=== PATIENT | male | born 1960 | race Caucasian/White ===

== ENCOUNTER 2017-02-01 18:08 | Emergency (ER) ==
[2017-02-01 18:42] LABS: URINE CULTURE NEEDED? NO; URINE MICRO REVIEW NEEDED? NO; URINE SOURCE CLEAN CATCH
[2017-02-01] MEDS ORDERED: ATIVAN PO ONE (18:48)
[2017-02-01] MEDS ORDERED: TYLENOL PO ONE (18:48)
--- NOTE | 2017-02-01 18:53 | PROVIDER DOCUMENTATION ---
HPI-Psychological Disorder - General Source: patient - History of Present Illness-Psych Onset/Duration: reports: unsure Timing: reports: still present Severity: reports: mild Situational problems related to:: reports: spouse (), daughter Psychiatric Complaints: reports: denies symptoms Previous psych related hospitalizations?: Yes Patient arrived by:: private car Similar Symptoms Previously?: Yes <Reece Callejas - Last Filed: 02/01/17 18:49> <Viraj Drake - Last Filed: 02/02/17 04:40> - General Chief Complaint: Psych Stated Complaint: PSYCH Time Seen by Provider: 02/01/17 18:18 Allergies/Adverse Reactions: Patient Allergies Allergy/AdvReac Type Severity Reaction Status Date / Time pseudoephedrine HCl * Allergy Mild HIVES Verified 02/01/17 18:31 [From [facility]] Home Medications: Home Medication List Medication Instructions Recorded Confirmed Last Taken Type Risperidone [Risperdal Consta] 25 mg IM Q14D #0 syringe 10/20/12 02/01/17 23:00 Rx Amoxicillin 500 mg PO TID 02/25/14 02/01/17 02/25/14 08:00 History Benzonatate 100 mg PO TID 02/25/14 02/01/17 02/24/14 23:00 History Citalopram Hydrobromide 10 mg PO DAILY 02/25/14 02/01/17 02/24/14 23:00 History [Citalopram HBr] Divalproex E.r. [Depakote ER] 250 mg PO QHS 02/25/14 02/01/17 02/24/14 23:00 History Divalproex Sodium 500 mg PO QHS 02/25/14 02/01/17 02/24/14 23:00 History Furosemide [Lasix] 40 mg PO DAILY #30 tablet 02/02/17 Unknown Rx Potassium Chloride [Klor-Con M20] 20 meq PO BID #14 tab.er.prt 02/02/17 Unknown Rx Sulfamethoxazole/Trimethoprim 1 each PO BID #14 tablet 02/02/17 Unknown Rx [Bactrim Ds Tablet] - History of Present Illness-Psych Nature of Presenting Problem: Pt is a 56 yom who presents to ER via EMS with CC of "I don't know." Pt denies any illness, but does report that he recently been having problems with his and daughter not ever believing him and never taking his side of things. On exam, pt is compliant and in no apparent distress. Pt was discharged several days ago from hospital after brought him and reported that pt is becoming "altered and difficult." Pt does have hx of bipolar disorder. (Reece Callejas) Review of Systems - Adult - REVIEW OF SYSTEMS - ADULT Constitutional: denies: chills, fever, fatique, night sweats, weight gain, weight loss Eyes: reports: no symptoms reported Ears, Nose, Mouth & Throat: reports: no symptoms reported Cardiovascular: denies: chest pain, heart murmur, irregular heart rate, palpitations, poor circulation, syncope Respiratory: denies: chronic cough, cough, dyspnea on exertion, excessive sputum production, hemoptysis, pleurisy, shortness of breath, wheezing Gastrointestinal: reports: no symptoms reported Genitourinary: reports: no symptoms reported Musculoskeletal: reports: no symptoms reported Integumentary: reports: no symptoms reported Neurological: reports: no symptoms reported Psychiatric: reports: emotional problems. denies: anxiety, anti-depressant use , alcohol/drug dependence, depression, insomnia, panic attacks, suicidal thoughts Endocrine: reports: no symptoms reported Hematologic/Lymphatic: reports: no symptoms reported Allergic/Immunologic: reports: no symptoms reported All Other Systems: Reviewed and Negative <Reece Callejas - Last Filed: 02/01/17 18:49> Past History - Adult - PAST MEDICAL HISTORY-ADULT Review of Records: reports: Nursing Assessment Review, Medications Reviewed - IMMUNIZATION STATUS Childhood Immunizations: See Nurse Assessment Flu Vaccine: See Nurse Assessment <Reece Callejas - Last Filed: 02/01/17 18:49> Physical Exam-Psych Focus - Physical Exam-Psych Initial Vital Signs Reviewed: Yes Appearance: appropriate appearance, appropriate insight, neat, no apparent distress, no memory impairment, denies illness, alert. 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 negative: agitated, anxious, depressed affect, disoriented x 3, flat, no response to pain, withdraws to pain Behavior/Eye Contact/Speech: cooperative, good eye contact, normal speech. negative: avoids eye contact, refused to answer, threatening eye contact Thoughts/Hallucinations: normal thought pattern, no apparent hallucination. negative: auditory hallucinations, flight of ideas, phobic, tactile hallucinations, visual hallucinations Respiratory: chest non-tender, lungs clear, normal breath sounds. negative: respiratory distress, decreased breath sounds, accessory muscle use, wheezing Cardiovascular: normal peripheral pulses, regular rate, rhythm. negative: bradycardia, tachycardia, irregularly irregular Integumentary: normal color, normal turgor, warm/dry. negative: abrasion(s), diaphoresis, erythema, laceration(s), swelling, tenderness, warm <Reece Callejas - Last Filed: 02/01/17 18:49> Progress - REASSESSMENT Reassessment #1 Time Reassessed: 04:38 (well behavior and no acute hallucination/no delusional at present ) Status: improving <Viraj Drake - Last Filed: 02/02/17 04:40> Departure <Reece Callejas - Last Filed: 02/01/17 18:49> - Departure Time of Disposition Order: 04:39 Certified Medical Emergency: Emergent <Viraj Drake - Last Filed: 02/02/17 04:40> - Departure DIAGNOSIS: Edema of both legs, Bipolar 1 disorder, manic, mild Disposition: HOME 01 Condition: Stable Additional Instructions: ED Follow Up Instructions: You have been treated by a care provider in the Emergency Department. These instructions are being provided to you so you can have an understanding of how to care for yourself upon discharge. Upon discharge from the Emergency Department, you are responsible for making arrangements for follow-up care by a physician of your choice. Take all prescribed medications as directed. Return to the Emergency Department immediately for any new or worsening symptoms. You may call the Physician Referral phone number at [phone] to obtain a list of Physicians who are taking new patients. Prescriptions: Sulfamethoxazole/Trimethoprim [Bactrim Ds Tablet] 1 each PO BID #14 tablet Potassium Chloride [Klor-Con M20] 20 meq PO BID #14 tab.er.prt Furosemide [Lasix] 40 mg PO DAILY #30 tablet Referrals: Rose Wu MD [Primary Care Provider] - Attestation - Scribe Verification/Attestation Scribe:: Reece Callejas Acting as Scribe for:: Viraj Drake Scribe documention review:: This chart was documented by a scribe and accurately reflects the service the provider performed and the decisions made by the provider. <Reece Callejas - Last Filed: 02/01/17 18:49> Physician Attestation
[2017-02-01 18:54] LABS: BILIRUBIN URINE NEGATIVE (NEGATIVE); BLOOD URINE NEGATIVE (NEGATIVE); COLOR STRAW; GLUCOSE URINE TRACE mg/dL (NEGATIVE); LEUKOCYTES URINE NEGATIVE (NEGATIVE); NITRITE URINE NEGATIVE (NEGATIVE); PROTEIN URINE NEGATIVE (NEGATIVE); SP GRAVITY URINE 1.004; TURBIDITY URINE CLEAR (CLEAR); UR EPITHELIAL CELLS <10 /HPF (<10); URINE BACTERIA NEGATIVE /HPF; URINE RBC <10 /HPF (<10); URINE WBC <10 /HPF (<10); UROBILINOGEN URINE NORMAL (NORMAL)
[2017-02-01 18:55] LABS: UR AMPHETAMINES QUAL NONE DETECTED (NONE DETECT); UR BARBITUATES QUAL NONE DETECTED (NONE DETECT); UR BENZODIAZEPIN QUAL NONE DETECTED (NONE DETECT); UR CANNABINOIDS QUAL NONE DETECTED (NONE DETECT); UR COCAINE QUAL NONE DETECTED (NONE DETECT); UR METHADONE QUAL NONE DETECTED (NONE DETECT); UR OPIATES QUAL NONE DETECTED (NONE DETECT); UR OXYCODONE QUAL NONE DETECTED (NONE DETECT); UR PCP QUAL NONE DETECTED (NONE DETECT)
[2017-02-01 19:07] LABS: MANUAL DIFF NEEDED? NO
[2017-02-01 19:14] LABS: BASO% 0.4 % (0.0-0.8); EOS# 0.16 X1000 (0.0-0.7); EOS% 1.4 % (0.0-10.0); HEMATOCRIT 39.8 % (42.0-52.0); HEMOGLOBIN 14.5 g/dL (14.0-18.0); IMM GRAN# 0.09 X1000 (0.0-0.04); IMM GRAN% 0.8 % (0.0-0.5); LYMPH# 1.85 X1000 (1.2-3.4); LYMPH% 16.7 % (20.5-51.1); MCH 31.7 PG (27-31); MCHC 36.4 g/dL (33-37); MCV 86.9 FL (81-99); MONO# 1.28 X1000 (0.11-0.59); MONO% 11.5 % (1.7-9.3); NEUT% 69.2 % (42.2-75.2); PLT 347 X1000 (130-400); RBC 4.58 XMIL (4.7-6.1)
[2017-02-01 19:29] LABS: AGAP 16; ALBUMIN 4.2 g/dL (3.5-5.0); ALKALINE PHOSPHATASE 72 U/L (32-122); BUN 7 mg/dL (8-22); CALCIUM 10.1 mg/dL (8.8-10.2); CHLORIDE 94 mmol/L (98-107); COSMO 270; GOT 26 U/L (10-34); GPT 29 U/L (10-44); POTASSIUM 4.2 mmol/L (3.5-5.1); SODIUM 134 mmol/L (136-145); TCO2 24 mmol/L (25-35); TOTAL BILIRUBIN 0.42 mg/dL (0.20-1.00); TOTAL PROTEIN 7.2 g/dL (6.3-8.3)
[2017-02-01 19:48] LABS: FREE T4 1.17 ng/dL (0.93-1.70)
[2017-02-02] MEDS ORDERED: LASIX PO ONE (04:36)
[2017-02-02] MEDS ORDERED: SEPTRA DS PO ONE (04:36)
[2017-02-02 12:30] VITALS: BP 122/85
== END 2017-02-02 12:29 | disposition home or self-care (01) ==
LOC: EDBD → ED 18:08
DX: R60.0 Localized edema (principal); F31.9 Bipolar disorder, unspecified; Z79.899 Other long term (current) drug therapy
CPT/HCPCS: 80053; 81001; 82607; 82948; 84439; 84443; 85025; 99283; G0480; 80320; 80324; 80345; 80346; 80349; 80353; 80358; 80361; 80365; 83992

== ENCOUNTER 2017-02-04 16:43 | Emergency (ER) ==
--- NOTE | 2017-02-04 17:37 | PROVIDER DOCUMENTATION ---
HPI-Psychological Disorder <CarlosNanci miller - Last Filed: 02/04/17 19:57> <Mukesh Silver - Last Filed: 02/04/17 20:46> - General Chief Complaint: Psych Stated Complaint: COURT HOLD, PSYCH Time Seen by Provider: 02/04/17 17:23 Allergies/Adverse Reactions: Patient Allergies Allergy/AdvReac Type Severity Reaction Status Date / Time pseudoephedrine HCl * Allergy Mild HIVES Verified 02/04/17 17:35 [From [facility]] Home Medications: Home Medication List Medication Instructions Recorded Confirmed Last Taken Type LISINOpril [Prinivil] 20 mg PO DAILY 02/04/17 02/04/17 02/04/17 History LOVAstatin [Mevacor] 20 mg PO WSUPPER 02/04/17 02/04/17 02/04/17 History Metformin [Glucophage] 500 mg PO BID CC 02/04/17 02/04/17 02/04/17 History - History of Present Illness-Psych Nature of Presenting Problem: Pt was recently admitted to inpatient psych but was sent over from dr chloe leigh office as a psych hold apparently. He was unable to tell me any complaints other than he "has sugar DM in his legs" and that he hasn't had his medications and that his doesn't know what to feed him. He also states that BRITTNEY is the problem not him he is a nice qamar. He denies SI or any complaint at this time. (Mukesh Silver) Review of Systems - Adult - REVIEW OF SYSTEMS - ADULT ROS:: limited per condition Constitutional: reports: no symptoms reported. denies: chills, fever, fatique, night sweats, weight gain, weight loss Eyes: reports: no symptoms reported. denies: discharge, dry eyes, decreased vision, blurred vision, eye pain, redness Ears, Nose, Mouth & Throat: reports: no symptoms reported. denies: ear discharge, hearing loss, tinnitus, epistaxis, nose pain, loose teeth, mouth swelling, hoarseness, throat swelling Cardiovascular: reports: no symptoms reported. denies: chest pain, edema, heart murmur, orthopnea, palpitations, poor circulation, syncope Respiratory: reports: no symptoms reported. denies: chronic cough, cough, dyspnea on exertion, excessive sputum production, pleurisy, shortness of breath , wheezing Gastrointestinal: reports: no symptoms reported. denies: abdominal pain, hematemesis, diarrhea, difficulty swallowing, nausea, poor appetite, rectal bleeding, vomiting Genitourinary: reports: no symptoms reported. denies: dysuria, discharge, frequency, frequent UTI's, hematuria, hesitency, urinary retention, urgency Musculoskeletal: reports: no symptoms reported. denies: bone pain, back pain, frequent leg cramps, joint pain, muscle aches, muscle weakness, neck pain Integumentary: reports: no symptoms reported. denies: hives, hair loss, itching , mole changes, rash, skin sores/ulcer, skin thickening Neurological: reports: no symptoms reported. denies: ataxia, headache/migraines , loss of balance, paresthesia, slurred speech, syncope, tremors Psychiatric: reports: see HPI, depression, other (schizo). denies: insomnia, suicidal thoughts Endocrine: reports: no symptoms reported. denies: change in skin pigment, excessive sweating, goiter, cold intolerance, heat intolerance, increased hunger , increased thirst, polyuria Hematologic/Lymphatic: reports: no symptoms reported. denies: blood clots, easy bruising, lymphedema, prolonged bleeding, swollen lymph nodes, transfusions Allergic/Immunologic: reports: no symptoms reported. denies: allergic reactions , allergic rhinitis, asthma, food allergy, frequent infections, hay fever, hives , positive PPD All Other Systems: Reviewed and Negative <Mukesh Silver - Last Filed: 02/04/17 20:46> Past History - Adult - PAST MEDICAL HISTORY-ADULT Review of Records: reports: Old Records Reviewed, Nursing Assessment Review, Medications Reviewed, Social history reviewed & non-contributory. Major Childhood Illnesses: reports: denies history Cardiovascular: reports: HTN, hyperlipidemia Respiratory: reports: denies history Gastrointestinal: reports: denies history Obstetrical/Gynecological: reports: denies history Genitourinary: reports: denies history Musculoskeletal: reports: denies history Neurological: reports: denies history Endocrine/Immune: reports: Diabetes Diabetes Type: Type 2 Other Conditions: reports: denies history - PRIOR SURGERIES/PROCEDURES Surgical/Procedure History: reports: reviewed, not pertinent - PRIOR HOSPITALIZATIONS Prior Hospitalizations: reports: psychiatric or rehab - IMMUNIZATION STATUS Childhood Immunizations: See Nurse Assessment Flu Vaccine: See Nurse Assessment - FAMILY HISTORY Family History: reviewed, not pertinent - SOCIAL HISTORY Smoking: denies Substance Use: none/never Alcohol Use Frequency: never Living Situation: family <Mukesh Silver - Last Filed: 02/04/17 20:46> Physical Exam-Psych Focus - Physical Exam-Psych Initial Vital Signs Reviewed: Yes Appearance: denies illness, alert, disheveled, impaired insight Neurological: alert, normal mood/affect, calm, 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, other ( questionable orientation) Behavior/Eye Contact/Speech: cooperative, good eye contact, increased rate of speech Thoughts/Hallucinations: no apparent hallucination, flight of ideas HENMT: normocephalic/atraumatic, moist mucous membranes, normal ENT inspection Neck: non-tender, full range of motion Respiratory: chest non-tender, lungs clear, normal breath sounds Cardiovascular: normal peripheral pulses, regular rate, rhythm Abdominal Exam: normal bowel sounds, non tender, soft Back Exam: normal inspection, no CVA tenderness Extremity: normal range of motion, non-tender, normal gait, no calf tenderness, pedal edema, swelling Integumentary: normal turgor, warm/dry (chronic discoloration from venous stasis ), other <Mukesh Silver - Last Filed: 02/04/17 20:46> Progress - EKG 1 Time of EKG reading by physician:: 17:54 EKG Read and Signed by:: Viraj Drake EKG Interpretation (*Must complete 3 of following elements*): Abnormal Rate: 102 Rhythm: sinus tachycardia Huson: normal Comments: inferior infarct, age undetermined <Nanci Gonzalez - Last Filed: 02/04/17 19:57> - XRAY 1 XRAY Study: Chest XRAY Interpretation: mildly increased pulm vasc markings (hcb) <Mukesh Silver - Last Filed: 02/04/17 20:46> - PLAN OF CARE/RESULTS Progress/Plan/Lab Results: Laboratory Tests 02/04/17 02/04/17 02/04/17 17:14 17:14 17:30 WBC RBC Hgb Hct MCV MCH MCHC RDW Std Deviation Plt Count MPV Immature Gran % (Auto) Neut % (Auto) Lymph % (Auto) Andrews % (Auto) Eos % (Auto) Baso % (Auto) Immature Gran # (Auto) Neut # (Auto) Lymph # (Auto) Andrews # (Auto) Eos # (Auto) Baso # (Auto) Sodium Potassium Chloride Carbon Dioxide Anion Gap BUN Creatinine Estimated GFR/1.73 m2 BUN/Creatinine Ratio Glucose Calculated Osmolality Calcium Total Bilirubin AST ALT Alkaline Phosphatase Total Protein Albumin Globulin Albumin/Globulin Ratio Vitamin B12 TSH Free T4 Urine Source CLEAN CATCH Urine Color STRAW Urine Turbidity CLEAR Urine pH 7.0 Ur Specific [place] 1.003 Urine Protein NEGATIVE Ur Glucose (Stick) NEGATIVE Ur Ketones (Stick) NEGATIVE Urine Blood NEGATIVE Urine Nitrite NEGATIVE Urine Bilirubin NEGATIVE Urobilinogen Dipstick NORMAL Urine Leukocytes NEGATIVE Urine WBC (Auto) <10 Urine RBC (Auto) <10 U Epithel Cells (Auto) <10 Urine Bacteria (Auto) NEGATIVE Salicylates Urine Opiates Screen NONE DETECTED Ur Oxycodone Screen NONE DETECTED Ur Methadone, Qual NONE DETECTED Acetaminophen Ur Barbiturates Screen NONE DETECTED Ur Phencyclidine Scrn NONE DETECTED Ur Amphetamines Screen NONE DETECTED U Benzodiazepines Scrn NONE DETECTED Urine Cocaine Screen NONE DETECTED U Cannabinoids Screen NONE DETECTED Plasma/Serum Ethyl Alc 17 H 02/04/17 02/04/17 02/04/17 17:30 17:30 17:30 WBC 8.68 RBC 4.50 L Hgb 14.2 Hct 38.8 L MCV 86.2 MCH 31.6 H MCHC 36.6 RDW Std Deviation 12.2 Plt Count 369 MPV 9.7 Immature Gran % (Auto) 0.7 H Neut % (Auto) 63.6 Lymph % (Auto) 20.7 Andrews % (Auto) 13.1 H Eos % (Auto) 1.6 Baso % (Auto) 0.3 Immature Gran # (Auto) 0.06 H Neut # (Auto) 5.51 Lymph # (Auto) 1.80 Andrews # (Auto) 1.14 H Eos # (Auto) 0.14 Baso # (Auto) 0.03 Sodium 130 L Potassium 4.1 Chloride 92 L Carbon Dioxide 21 L Anion Gap 17 BUN 5 L Creatinine 0.8 Estimated GFR/1.73 m2 > 60 BUN/Creatinine Ratio 6 Glucose 167 H Calculated Osmolality 262 Calcium 9.1 Total Bilirubin 0.48 AST 28 ALT 27 Alkaline Phosphatase 67 Total Protein 6.9 Albumin 4.2 Globulin 2.7 Albumin/Globulin Ratio 1.6 Vitamin B12 630 TSH 0.82 Free T4 1.21 Urine Source Urine Color Urine Turbidity Urine pH Ur Specific [place] Urine Protein Ur Glucose (Stick) Ur Ketones (Stick) Urine Blood Urine Nitrite Urine Bilirubin Urobilinogen Dipstick Urine Leukocytes Urine WBC (Auto) Urine RBC (Auto) U Epithel Cells (Auto) Urine Bacteria (Auto) Salicylates < 3.00 L Urine Opiates Screen Ur Oxycodone Screen Ur Methadone, Qual Acetaminophen < 1.2 L Ur Barbiturates Screen Ur Phencyclidine Scrn Ur Amphetamines Screen U Benzodiazepines Scrn Urine Cocaine Screen U Cannabinoids Screen Plasma/Serum Ethyl Alc Orders Category Date Time Status Diabetic Diet Diet 02/04/17 18:02 Active cxr [CHEST-1 VIEW] [RAD] Stat Exams 02/04/17 17:43 Taken ACETAMINOPHEN [TDM] Stat Lab 02/04/17 17:30 Completed ALCOHOL BLOOD Stat Lab 02/04/17 17:30 Completed CBC WITH ELECTRONIC DIFF [HEME] Stat Lab 02/04/17 17:30 Completed COMPREHENSIVE METABOLIC PANEL [CHEM] Stat Lab 02/04/17 17:30 Completed FREE T4 Stat Lab 02/04/17 17:30 Completed SALICYLATES [TDM] Stat Lab 02/04/17 17:30 Completed TSH Stat Lab 02/04/17 17:30 Completed URINALYSIS W/POSS RFLX CULT [URINALYSIS] Stat Lab 02/04/17 17:14 Completed URINE DRUG SCREEN Stat Lab 02/04/17 17:14 Completed VITAMIN B12 Stat Lab 02/04/17 17:30 Completed Furosemide [Lasix] Med 02/04/17 18:33 Discontinued 40 mg IV NOW ONE Insulin Human Regular [Humulin R] Med 02/04/17 18:34 Discontinued 2 unit IV NOW ONE EKG [EKG] Stat Ther 02/04/17 17:25 Ordered Vital Signs - 24 hr 02/04/17 17:00 Temperature 98.3 F Pulse Rate 95 H Respiratory 20 Rate Blood Pressure 123/75 O2 Sat by Pulse 100 Oximetry Laboratory Tests 02/04/17 02/04/17 02/04/17 17:14 17:14 17:30 WBC RBC Hgb Hct MCV MCH MCHC RDW Std Deviation Plt Count MPV Immature Gran % (Auto) Neut % (Auto) Lymph % (Auto) Andrews % (Auto) Eos % (Auto) Baso % (Auto) Immature Gran # (Auto) Neut # (Auto) Lymph # (Auto) Andrews # (Auto) Eos # (Auto) Baso # (Auto) Sodium Potassium Chloride Carbon Dioxide Anion Gap BUN Creatinine Estimated GFR/1.73 m2 BUN/Creatinine Ratio Glucose Calculated Osmolality Calcium Total Bilirubin AST ALT Alkaline Phosphatase Total Protein Albumin Globulin Albumin/Globulin Ratio Vitamin B12 TSH Free T4 Urine Source CLEAN CATCH Urine Color STRAW Urine Turbidity CLEAR Urine pH 7.0 Ur Specific [place] 1.003 Urine Protein NEGATIVE Ur Glucose (Stick) NEGATIVE Ur Ketones (Stick) NEGATIVE Urine Blood NEGATIVE Urine Nitrite NEGATIVE Urine Bilirubin NEGATIVE Urobilinogen Dipstick NORMAL Urine Leukocytes NEGATIVE Urine WBC (Auto) <10 Urine RBC (Auto) <10 U Epithel Cells (Auto) <10 Urine Bacteria (Auto) NEGATIVE Salicylates Urine Opiates Screen NONE DETECTED Ur Oxycodone Screen NONE DETECTED Ur Methadone, Qual NONE DETECTED Acetaminophen Ur Barbiturates Screen NONE DETECTED Ur Phencyclidine Scrn NONE DETECTED Ur Amphetamines Screen NONE DETECTED U Benzodiazepines Scrn NONE DETECTED Urine Cocaine Screen NONE DETECTED U Cannabinoids Screen NONE DETECTED Plasma/Serum Ethyl Alc 17 H 02/04/17 02/04/17 02/04/17 17:30 17:30 17:30 WBC 8.68 RBC 4.50 L Hgb 14.2 Hct 38.8 L MCV 86.2 MCH 31.6 H MCHC 36.6 RDW Std Deviation 12.2 Plt Count 369 MPV 9.7 Immature Gran % (Auto) 0.7 H Neut % (Auto) 63.6 Lymph % (Auto) 20.7 Andrews % (Auto) 13.1 H Eos % (Auto) 1.6 Baso % (Auto) 0.3 Immature Gran # (Auto) 0.06 H Neut # (Auto) 5.51 Lymph # (Auto) 1.80 Andrews # (Auto) 1.14 H Eos # (Auto) 0.14 Baso # (Auto) 0.03 Sodium 130 L Potassium 4.1 Chloride 92 L Carbon Dioxide 21 L Anion Gap 17 BUN 5 L Creatinine 0.8 Estimated GFR/1.73 m2 > 60 BUN/Creatinine Ratio 6 Glucose 167 H Calculated Osmolality 262 Calcium 9.1 Total Bilirubin 0.48 AST 28 ALT 27 Alkaline Phosphatase 67 Total Protein 6.9 Albumin 4.2 Globulin 2.7 Albumin/Globulin Ratio 1.6 Vitamin B12 630 TSH 0.82 Free T4 1.21 Urine Source Urine Color Urine Turbidity Urine pH Ur Specific [place] Urine Protein Ur Glucose (Stick) Ur Ketones (Stick) Urine Blood Urine Nitrite Urine Bilirubin Urobilinogen Dipstick Urine Leukocytes Urine WBC (Auto) Urine RBC (Auto) U Epithel Cells (Auto) Urine Bacteria (Auto) Salicylates < 3.00 L Urine Opiates Screen Ur Oxycodone Screen Ur Methadone, Qual Acetaminophen < 1.2 L Ur Barbiturates Screen Ur Phencyclidine Scrn Ur Amphetamines Screen U Benzodiazepines Scrn Urine Cocaine Screen U Cannabinoids Screen Plasma/Serum Ethyl Alc Orders Category Date Time Status Diabetic Diet Diet 02/04/17 18:02 Active cxr [CHEST-1 VIEW] [RAD] Stat Exams 02/04/17 17:43 Taken ACETAMINOPHEN [TDM] Stat Lab 02/04/17 17:30 Completed ALCOHOL BLOOD Stat Lab 02/04/17 17:30 Completed CBC WITH ELECTRONIC DIFF [HEME] Stat Lab 02/04/17 17:30 Completed COMPREHENSIVE METABOLIC PANEL [CHEM] Stat Lab 02/04/17 17:30 Completed FREE T4 Stat Lab 02/04/17 17:30 Completed SALICYLATES [TDM] Stat Lab 02/04/17 17:30 Completed TSH Stat Lab 02/04/17 17:30 Completed URINALYSIS W/POSS RFLX CULT [URINALYSIS] Stat Lab 02/04/17 17:14 Completed URINE DRUG SCREEN Stat Lab 02/04/17 17:14 Completed VITAMIN B12 Stat Lab 02/04/17 17:30 Completed Furosemide [Lasix] Med 02/04/17 18:33 Stop Req 40 mg IV NOW ONE Furosemide [Lasix] Med 02/04/17 20:44 Discontinued 40 mg PO NOW ONE Insulin Human Regular [Humulin R] Med 02/04/17 18:34 Stop Req 2 unit IV NOW ONE Insulin Human Regular [Humulin R] Med 02/04/17 20:45 Once 2 unit SUBQ NOW ONE EKG [EKG] Stat Ther 02/04/17 17:25 Ordered Vital Signs - 24 hr 02/04/17 17:00 Temperature 98.3 F Pulse Rate 95 H Respiratory 20 Rate Blood Pressure 123/75 O2 Sat by Pulse 100 Oximetry (Mukesh Silver) Departure <Nanci Gonzalez - Last Filed: 02/04/17 19:57> - Departure Time of Disposition Order: 20:46 Certified Medical Emergency: Emergent <Mukesh Silver - Last Filed: 02/04/17 20:46> - Departure DIAGNOSIS: Edema of both legs Disposition: [facility] Condition: Good Additional Instructions: ED Follow Up Instructions: You have been treated by a care provider in the Emergency Department. These instructions are being provided to you so you can have an understanding of how to care for yourself upon discharge. Upon discharge from the Emergency Department, you are responsible for making arrangements for follow-up care by a physician of your choice. Take all prescribed medications as directed. Return to the Emergency Department immediately for any new or worsening symptoms. You may call the Physician Referral phone number at [phone] to obtain a list of Physicians who are taking new patients. Referrals: Rose Wu MD [Primary Care Provider] - Attestation - Physician/ JOSE Attestation Patient care was provided by Advanced Practice Provider:: Yes Advanced Practice Provider:: Mukesh Silver Advanced Practice Provider documentation review:: The Mid-level provider documentation, treatment plan and medical decision making was reviewed by the physician who agrees with all treatment and medical decision making by the MLP. <Mukesh Silver - Last Filed: 02/04/17 20:46> Physician Attestation - Physician Attestation I, the provider, attest to the following statement:: Mukesh Silver Physician documentation Attestation:: This documentation recorded by the scribe accurately reflects the service I personally performed and the decisions made by me. <Mukesh Silver - Last Filed: 02/04/17 20:46>
[2017-02-04 17:45] LABS: URINE CULTURE NEEDED? NO; URINE MICRO REVIEW NEEDED? NO; URINE SOURCE CLEAN CATCH
[2017-02-04 17:54] LABS: BASO% 0.3 % (0.0-0.8); EOS# 0.14 X1000 (0.0-0.7); EOS% 1.6 % (0.0-10.0); HEMATOCRIT 38.8 % (42.0-52.0); HEMOGLOBIN 14.2 g/dL (14.0-18.0); IMM GRAN# 0.06 X1000 (0.0-0.04); IMM GRAN% 0.7 % (0.0-0.5); LYMPH% 20.7 % (20.5-51.1); MANUAL DIFF NEEDED? NO; MCH 31.6 PG (27-31); MCHC 36.6 g/dL (33-37); MCV 86.2 FL (81-99); MONO# 1.14 X1000 (0.11-0.59); MONO% 13.1 % (1.7-9.3); MPV 9.7 FL (7.4-10.4); NEUT% 63.6 % (42.2-75.2); PLT 369 X1000 (130-400)
[2017-02-04 17:56] LABS: BILIRUBIN URINE NEGATIVE (NEGATIVE); BLOOD URINE NEGATIVE (NEGATIVE); COLOR STRAW; GLUCOSE URINE NEGATIVE (NEGATIVE); LEUKOCYTES URINE NEGATIVE (NEGATIVE); NITRITE URINE NEGATIVE (NEGATIVE); PROTEIN URINE NEGATIVE (NEGATIVE); SP GRAVITY URINE 1.003; TURBIDITY URINE CLEAR (CLEAR); UR EPITHELIAL CELLS <10 /HPF (<10); URINE BACTERIA NEGATIVE /HPF; URINE RBC <10 /HPF (<10); URINE WBC <10 /HPF (<10); UROBILINOGEN URINE NORMAL (NORMAL)
[2017-02-04 18:01] LABS: UR AMPHETAMINES QUAL NONE DETECTED (NONE DETECT); UR BARBITUATES QUAL NONE DETECTED (NONE DETECT); UR BENZODIAZEPIN QUAL NONE DETECTED (NONE DETECT); UR CANNABINOIDS QUAL NONE DETECTED (NONE DETECT); UR COCAINE QUAL NONE DETECTED (NONE DETECT); UR METHADONE QUAL NONE DETECTED (NONE DETECT); UR OPIATES QUAL NONE DETECTED (NONE DETECT); UR OXYCODONE QUAL NONE DETECTED (NONE DETECT); UR PCP QUAL NONE DETECTED (NONE DETECT)
[2017-02-04 18:08] LABS: ACETAMINOPHEN < 1.2 ug/mL (10-30); AGAP 17; ALBUMIN 4.2 g/dL (3.5-5.0); ALKALINE PHOSPHATASE 67 U/L (32-122); BUN 5 mg/dL (8-22); CALCIUM 9.1 mg/dL (8.8-10.2); CHLORIDE 92 mmol/L (98-107); COSMO 262; GOT 28 U/L (10-34); GPT 27 U/L (10-44); POTASSIUM 4.1 mmol/L (3.5-5.1); SODIUM 130 mmol/L (136-145); TCO2 21 mmol/L (25-35); TOTAL BILIRUBIN 0.48 mg/dL (0.20-1.00); TOTAL PROTEIN 6.9 g/dL (6.3-8.3)
[2017-02-04 18:27] LABS: FREE T4 1.21 ng/dL (0.93-1.70)
[2017-02-04] MEDS ORDERED: LASIX IV ONE (18:33)
[2017-02-04] MEDS ORDERED: HUMULIN R IV ONE (18:34)
[2017-02-04] MEDS ORDERED: LASIX PO ONE (20:44)
[2017-02-04] MEDS ORDERED: HUMULIN R SUBQ ONE (20:45)
[2017-02-04 21:38] VITALS: BP 139/80
--- NOTE | 2017-02-05 07:22 | EKG Report ---
Test Performed on : 02/04/2017 5:54:52 PM Test Reason : psych Blood Pressure : / mmHG Vent. Rate : 102 BPM Atrial Rate : 102 BPM P-R Int : 154 ms QRS Dur : 062 ms QT Int : 350 ms P-R-T Axes : 023 -09 -19 degrees QTc Int : 456 ms Sinus tachycardia. Inferior infarct , age undetermined Abnormal ECG When compared with ECG of 13-JAN-2017 07:20, premature atrial complexes. are no longer present Inferior infarct is now present Unconfirmed Result
--- NOTE | 2017-02-05 08:01 | Diag Imaging Result Document ---
PROCEDURE NAME: CHEST-1 VIEW - 02/04/2017 PORTABLE CHEST X-RAY: COMPARISON: 02/25/2014. FINDINGS: The lungs are normally expanded and clear. Heart size and mediastinal contours are normal. No pneumothorax or pleural effusion. IMPRESSION: Negative exam.
== END 2017-02-04 21:43 ==
LOC: EDBD → ED 16:43
DX: R60.0 Localized edema (principal); R94.31 Abnormal electrocardiogram [ECG] [EKG]; R41.0 Disorientation, unspecified; I87.8 Other specified disorders of veins; I10 Essential (primary) hypertension; E78.5 Hyperlipidemia, unspecified; E11.9 Type 2 diabetes mellitus without complications; Z79.899 Other long term (current) drug therapy
CPT/HCPCS: 71010; 80053; 81001; 82607; 84439; 84443; 85025; 93005; G0480; 80320; 80324; 80329; 80345; 80346; 80349; 80353; 80358; 80361; 80365; 83992